=== PATIENT | male | born 1995 | race Caucasian/White ===

== ENCOUNTER 2019-01-14 11:05 | Emergency (ER) | payer SELFPAY ==
[2019-01-14] MEDS: METHOCARBAMOL 750 MG TAB PO (12:27)
[2019-01-14] MEDS: IBUPROFEN 800 MG TAB PO (12:39)
== END 2019-01-14 13:53 | disposition home or self-care (01) ==
LOC: FTE 11:05
DX: M54.5 Low back pain (principal)
CPT/HCPCS: 72100; 99283-25